=== PATIENT | male | born 1970 | race Caucasian/White ===

== ENCOUNTER 2022-02-13 07:21 | Day surgery (SDC) | payer OTHER ==
[~2022-02-13] VITALS: Ht 182.9 cm; Wt 118.0 kg
[2022-02-13] VITALS (11 sets, daily range): BP systolic 108–148; BP diastolic 78–107
[~2022-02-13 07:21] MED LIST: ATOR20TA PO; CELE-85 PO; CHLO25TA2 PO; MAGN400C PO; OMEP20CA16 PO; cefazolin/dext.iso 2gm/100ml 100 ML IV ONE; famotidine 20mg tablet PO ONE; ringers solution, lacted 1,000 ML IV SCH
[2022-02-13 09:01] LABS: BASOPHILS # (AUTO) 0.1 X10'3 (0-0.2); BASOPHILS % (AUTO) 0.7 % (0-1); EOSINOPHILS # (AUTO) 0.3 X10'3 (0-0.9); EOSINOPHILS % (AUTO) 3.1 % (0-6); LYMPHOCYTES # (AUTO) 2.6 X10'3 (1.1-4.8); LYMPHOCYTES % (AUTO) 24.5 % (21-51); MEAN CORPUSCULAR HEMOGLOBIN 29.8 PG (27.0-31.0); MEAN CORPUSCULAR VOLUME 87.4 FL (78-98); MEAN PLATELET VOLUME 8.2 FL (7.4-10.4); MONOCYTES # (AUTO) 1.1 X10'3 (0-0.9); MONOCYTES % (AUTO) 10.1 % (2-12); NEUTROPHILS # (AUTO) 6.4 X10'3 (1.8-7.7); NEUTROPHILS % (AUTO) 61.6 % (42-75); PRE OP HEMATOCRIT 34.7 % (42.0-52.0); PRE OP HEMOGLOBIN 11.8 g/dL (14.0-17.9); PRE OP PLATELET COUNT 350 X10'3 (140-440); RED BLOOD COUNT 3.96 X10'6 (4.70-6.10)
--- NOTE | 2022-02-13 09:18 | NUR ---
pt prepped for surgery, EKG completed at bedside, CBC drawn with IV start. IV started without difficulty. Dr. Gunn at bedside, surgery site marked by physician
[2022-02-13] MEDS ORDERED: BUPIVAcaine 0.5% inj/PF 30 ML ONE ×2 (09:26)
[2022-02-13] MEDS ORDERED: LIDOcaine 1% 30ml preserv. free vial ONE (09:26)
[2022-02-13] MEDS ORDERED: BUPIVACAINE liposomal/PF 13.3 MG/ML vial IM ONE (09:26)
[2022-02-13] MEDS ORDERED: midazolam 1 mg/ML 2ml injection ONE (09:38)
[2022-02-13] MEDS ORDERED: fentaNYL/PF 50MCG/1 ML 2ML syringe ONE (09:38)
[2022-02-13] MEDS ORDERED: rocuronium 10mg/ml inj IV ONE (09:39)
[2022-02-13] MEDS ORDERED: propofol inj 20 ML IV ONE (09:39)
[2022-02-13] MEDS ORDERED: BUPIVAcaine 0.5% inj/PF 30 ml vial IJ ONE (10:07)
[2022-02-13] MEDS ORDERED: proCHLORperazine 10 MG/2 ml inj IV PRN (10:20)
[2022-02-13] MEDS ORDERED: morphine 2 MG/ML inj. syringe IV PRN (10:20)
[2022-02-13] MEDS ORDERED: ringers solution, lacted 1,000 ML IV SCH (10:20)
[2022-02-13] MEDS ORDERED: ondansetron/PF 4mg/2ml inj IV PRN (10:20)
[2022-02-13] MEDS ORDERED: meperidine/PF 25mg/ml syringe IV PRN ×2 (10:20)
[2022-02-13] MEDS ORDERED: morphine 4 MG/ML inj SYRINge IV PRN (10:20)
[2022-02-13] MEDS ORDERED: neostigmine methylsulfate 1 MG/ML 10ml vial ONE (10:49)
[2022-02-13] MEDS ORDERED: glycopyrrolate 0.2mg/ml inj ONE (10:49)
[2022-02-13] MEDS ORDERED: labetalol 20mg/4ml (5mg/ml) syringe IV ONE (10:49)
--- NOTE | 2022-02-13 10:52 | NUR ---
Received from OR via [facility] IN STABLE CONDITION , accompanied by Anesthesiologist and SLITTER AND REWINDER report given by SLITTER AND REWINDER AND Anesthesiolgist. Addendum: 02/13/22 at 1119 by Natasha Lester RN Amended: Links added.
[2022-02-13] MEDS: meperidine/PF 25mg/ml syringe IV PRN ×2 (11:08→11:41)
[2022-02-13] MEDS ORDERED: oxyCODONE/APAP 5-325mg tablet PO PRN ×2 (11:20)
[2022-02-13] MEDS ORDERED: acetaminophen 1,000mg/100ml IV 100 ML IV ONE (11:25)
--- NOTE | 2022-02-13 12:29 | NUR ---
PATIENT DISCHARGED FROM PACU IN STABLE CONDITION AFTER WRITTEN AND VERBAL DISCHARGE INSTURCTIONS GIVEN. PATIENT GAVE VERBAL UNDERSTANDING OF INSTRUCTIONS GIVEN. PATIENT LEFT FACILITY VIA WHEELCHAIR WITH RN. Addendum: 02/13/22 at 1309 by Natasha Lester RN Amended: Links added.
== END 2022-02-13 12:29 | disposition home or self-care (01) ==
LOC: PAS 07:21
PROVIDERS: ATTEND Surgery
DX: K43.0 Incisional hernia with obstruction, without gangrene (principal); K21.9 Gastro-esophageal reflux disease without esophagitis; G47.30 Sleep apnea, unspecified; I10 Essential (primary) hypertension; F41.9 Anxiety disorder, unspecified; N40.0 Benign prostatic hyperplasia without lower urinary tract symptoms; E66.9 Obesity, unspecified; Z68.35 Body mass index [BMI] 35.0-35.9, adult; Z79.899 Other long term (current) drug therapy; Z87.891 Personal history of nicotine dependence; Z72.89 Other problems related to lifestyle; Z98.890 Other specified postprocedural states
CPT/HCPCS: 36415; 49655; 64488; 82948; 85025; C1781; C9290; J0690; J2175; J2250; J2704; J2710; J3010; J3490; J7030; J7120; S0020; Z7506; Z7508; Z7512; A4215; A4618